=== PATIENT | male | born 1975 | race Caucasian/White ===

== ENCOUNTER 2021-08-29 13:10 | Emergency (ER) | payer OTHER ==
--- NOTE | 2021-08-29 13:10 | NUR ---
CARDIOPULMONARY ARREST: Edward GE, AIDA; Shivani PRO, AIDA ATTENDING
[2021-08-29] MEDS ORDERED: INTUBATION KIT MC ONE (13:24)
[2021-08-29] MEDS ORDERED: PRIMARY CRASH CART TRAY MC ONE (13:26)
--- NOTE | 2021-08-29 15:51 | NUR ---
46 Y/O M BIBA FOR FULL ARREST. PT WAS AT [facility] WHERE HE APPEARED LETHARGIC AND MILDLY NONVERBAL. PT SYNCOPIZED FOR 2 MIN AND CPR WAS INITIATED. PT HAD NO PULSE. PT WAS SHOCKED VIA AED AND WAS INITIALLY ASYSTOLE ON MONITOR. CPR WAS RESUMED FOR 20 MIN THEN FOUND TO BE V FIB. PT RRECEIVED TOTAL 29 MIN CPR BEFORE ARRIVAL. 1307 CPR WAS CONTINUED IN THE ED.TOD WAS AT 1337.
--- NOTE | 2021-08-29 15:51 | NUR ---
14:10 [facility] WAS CALLED. SPOKE WITH OH AND PT WAS NOT A CONDIDATE PER [facility]. REF NUMBER- [id number].
--- NOTE | 2021-08-29 15:53 | NUR ---
[facility] WAS CALLED AT 14:50 AND SPOKE WITH JYOTI.
--- NOTE | 2021-08-29 15:53 | NUR ---
15:38 [facility] CALLED SPOKE WITH ADELAIDE NOWAK. PER BENITEZ PT IS NOT A [facility] CASE AND THE BODY HAS BEEN RELEASED. FAMILY WAS NOTIFIED.
--- NOTE | 2021-08-29 18:05 | NUR ---
paperwork given to maid housekeeper alix rn at this time per [place] andre
== END 2021-08-29 13:37 ==
LOC: MED 13:10
DX: I46.9 Cardiac arrest, cause unspecified (principal); I10 Essential (primary) hypertension; E11.9 Type 2 diabetes mellitus without complications; N18.9 Chronic kidney disease, unspecified; Z79.4 Long term (current) use of insulin; Z79.899 Other long term (current) drug therapy; Z98.890 Other specified postprocedural states
CPT/HCPCS: 31500; 92950; 99291